=== PATIENT | male | born 2005 | race Caucasian/White ===

== ENCOUNTER 2024-05-06 21:41 | Emergency (ER) | payer BC, OTHER ==
[2024-05-06] MEDS ORDERED: predniSONE 20 MG TAB ONE (22:03)
== END 2024-05-06 22:10 | disposition home or self-care (01) ==
LOC: BURERS 21:41
DX: L23.7 Allergic contact dermatitis due to plants, except food (principal)
CPT/HCPCS: 99283; J7512